=== PATIENT | male | born 1965 | race Two or more races ===

== ENCOUNTER 2017-02-13 21:09 | Emergency (ER) | payer MEDICAID ==
[~2017-02-13] VITALS: Ht 185.4 cm; Wt 71.2 kg
[2017-02-13 22:03] VITALS: BP 132/53
[2017-02-13 23:22] LABS: HEMOGLOBIN 15.5 g/dL (13.7-18.0)
[2017-02-13 23:32] LABS: BLOOD UREA NITROGEN 20 mg/dL (7-18)
[2017-02-13] MEDS ORDERED: HYDROcodone/APAP 5/325 TABLET ONE (23:47)
[2017-02-14] MEDS ORDERED: HYDROcodone/APAP 5/325 TABLET PO ONE
== END 2017-02-14 01:22 | disposition home or self-care (01) ==
LOC: ED 23:27
DX: S93.401A Sprain of unspecified ligament of right ankle, initial encounter (principal); X50.1XXA Overexertion from prolonged static or awkward postures, initial encounter; Y93.89 Activity, other specified; Y92.830 Public park as the place of occurrence of the external cause; Y99.8 Other external cause status
CPT/HCPCS: 36415; 80048; 82040; 85025; 85651; 86140